=== PATIENT | male | born 1950 | race Caucasian/White ===

== ENCOUNTER 2020-06-02 07:14 | Day surgery (SDC) | payer OTHER ==
[~2020-06-02] VITALS: Ht 172.7 cm; Wt 68.2 kg
[~2020-06-02 07:14] MED LIST: AMLO10 PO; ATOR20 PO; Amlodipine-Ben1 EACH PO; FISH OIL 1,2001 EAC7 PO; Hair, Skin & N1 EACH PO; Omeprazole20 M1 PO; POTA10T PO; Toprol Xl200 MG PO
== END 2020-06-02 09:15 | disposition home or self-care (01) ==
LOC: ORSCSDS 07:14
PROVIDERS: Surgery
PROC: 0DBM8ZX Excision of Descending Colon, Via Natural or Artificial Opening Endoscopic, Diagnostic (ICD-10-PCS; principal; 2020-06-02 08:30)
PROC: 0DBL8ZX Excision of Transverse Colon, Via Natural or Artificial Opening Endoscopic, Diagnostic (ICD-10-PCS; principal; 2020-06-02 08:30)
DX: Z12.11 Encounter for screening for malignant neoplasm of colon (principal); Z86.010 Personal history of colon polyps; D12.3 Benign neoplasm of transverse colon; D12.4 Benign neoplasm of descending colon; I12.9 Hypertensive chronic kidney disease with stage 1 through stage 4 chronic kidney disease, or unspecified chronic kidney disease; N18.1 Chronic kidney disease, stage 1; K21.9 Gastro-esophageal reflux disease without esophagitis; E78.5 Hyperlipidemia, unspecified; D64.9 Anemia, unspecified; Z79.899 Other long term (current) drug therapy
CPT/HCPCS: 88305; J2704; J7120

== ENCOUNTER → 2022-01-27 | Outpatient (CLI) | payer OTHER ==
[2022-01-28 08:53] LABS: Stool Occult Bld Immuno 1 Negative (NEGATIVE)
== END | disposition home or self-care (01) ==
LOC: LAB 14:25 → LAB SHORT 14:25
PROVIDERS: Family Medicine
DX: Z12.11 Encounter for screening for malignant neoplasm of colon (principal)
CPT/HCPCS: 82274

== ENCOUNTER → 2023-08-17 | Outpatient (CLI) | payer OTHER ==
[2023-08-17 15:08] LABS: Stool Occult Bld Immuno 1 Negative (NEGATIVE)
== END | disposition home or self-care (01) ==
LOC: LAB 08:00 → LAB SHORT 12:23 → LAB 12:23
PROVIDERS: Family Medicine
DX: Z12.11 Encounter for screening for malignant neoplasm of colon (principal)
CPT/HCPCS: 82274

== ENCOUNTER 2025-03-27 07:06 | Day surgery (SDC) | payer OTHER ==
[~2025-03-27] VITALS: Ht 172.7 cm; Wt 69.6 kg
[~2025-03-27 07:06] MED LIST changes: +Balanced Salt Epinephrine Irrigation Solution 500 mL IR SCH; +Diazepam 5 MG Tab PO PRN; +Diazepam 5 MG Tab PO SCH; +Lidocaine HCl/Pf 1% 5 ML VIAL ONE; +Lidocaine HCl/Pf 1% 5 ML VIAL XX SCH; +Moxifloxacin HCL 0.5 MG/0.1 ML 0.4MLSYR LEFTEYE SCH; +Ondansetron 4 MG SoluTab MM PRN; +PHENYLEPHRINE\\TROPICAMIDE\\TETRACAINE OPHTHALMIC DILATING SOLN LEFTEYE PRN; +Povidone-Iodine 450 DROP/30 ML Solution LEFTEYE SCH; +Povidone-Iodine 450 DROP/30 ML Solution ONE; +Tetracaine HCl/Pf 0.5% Opth Soln 4 ml ONE; +Triamcinolone Inj Susp 40 MG / ML 1ML Vial INJ SCH; +Triamcinolone Inj Susp 40 MG / ML 1ML Vial ONE
[2025-03-27] MEDS ORDERED: Diazepam 10 MG Tab ONE (07:17)
--- NOTE | 2025-03-27 07:39 | NUR ---
03/27/25 0739 Nazia Salinas PT REPORTS ANXIETY AT 10/11 PRIOR TO ADMINISTRATION OF VALIUM 10MG PO @ 0737. CONTINUOUS SPO2 AND HR MONITORING IN PLACE.
--- NOTE | 2025-03-27 08:36 | NUR ---
03/27/25 0836 Kati Schwartz BP-140/78 P-54 SPO2-100% 10L BLOW BY O2
[2025-03-27 08:51] VITALS: BP 148/77
== END 2025-03-27 09:06 | disposition home or self-care (01) ==
LOC: ORSCSDS 07:06
PROVIDERS: Ophthalmology
PROC: 08RK3JZ Replacement of Left Lens with Synthetic Substitute, Percutaneous Approach (ICD-10-PCS; principal; 2025-03-27 08:30)
DX: H25.812 Combined forms of age-related cataract, left eye (principal); Z96.1 Presence of intraocular lens; I10 Essential (primary) hypertension; H02.839 Dermatochalasis of unspecified eye, unspecified eyelid; Z79.899 Other long term (current) drug therapy
CPT/HCPCS: A9270; J2003; J3301; V2632

== ENCOUNTER 2025-06-13 08:21 | Day surgery (SDC) | payer OTHER ==
[~2025-06-13] VITALS: Ht 172.7 cm; Wt 67.8 kg
[~2025-06-13 08:21] MED LIST changes: -Balanced Salt Epinephrine Irrigation Solution 500 mL IR SCH; -Diazepam 5 MG Tab PO PRN; -Diazepam 5 MG Tab PO SCH; -Lidocaine HCl/Pf 1% 5 ML VIAL ONE; -Lidocaine HCl/Pf 1% 5 ML VIAL XX SCH; -Moxifloxacin HCL 0.5 MG/0.1 ML 0.4MLSYR LEFTEYE SCH; -Ondansetron 4 MG SoluTab MM PRN; -PHENYLEPHRINE\\TROPICAMIDE\\TETRACAINE OPHTHALMIC DILATING SOLN LEFTEYE PRN; -Povidone-Iodine 450 DROP/30 ML Solution LEFTEYE SCH; -Povidone-Iodine 450 DROP/30 ML Solution ONE; -Tetracaine HCl/Pf 0.5% Opth Soln 4 ml ONE; -Triamcinolone Inj Susp 40 MG / ML 1ML Vial INJ SCH; -Triamcinolone Inj Susp 40 MG / ML 1ML Vial ONE
[2025-06-13 11:19] VITALS: BP 106/67
== END 2025-06-13 11:10 | disposition home or self-care (01) ==
LOC: ORSCSDS 08:21
PROVIDERS: Surgery
PROC: 0DBM8ZX Excision of Descending Colon, Via Natural or Artificial Opening Endoscopic, Diagnostic (ICD-10-PCS; principal; 2025-06-13 10:00)
DX: Z12.11 Encounter for screening for malignant neoplasm of colon (principal); Z86.0101 Personal history of adenomatous and serrated colon polyps; D12.4 Benign neoplasm of descending colon; I10 Essential (primary) hypertension; K21.9 Gastro-esophageal reflux disease without esophagitis; E83.119 Hemochromatosis, unspecified; R53.83 Other fatigue; Z79.899 Other long term (current) drug therapy
CPT/HCPCS: 36415; 80053; 82728; 83540; 83550; 84443; 85025; 88305; J2704; J7120